=== PATIENT | male | born 1940 | race Caucasian/White ===

== ENCOUNTER 2017-01-07 20:37 | Inpatient (IN) | payer MEDICARE ==
[~2017-01-07] VITALS: Ht 180.3 cm; Wt 113.4 kg
[2017-01-08 00:48] VITALS: Ht 180.3 cm; Wt 113.4 kg
[2017-01-08] MEDS ORDERED: PRINIVIL20 MG PO (13:27)
[2017-01-08] MEDS ORDERED: CARDURA2 MG PO (13:28)
[2017-01-08] MEDS ORDERED: KLOR-CON M2020 MEQ PO (13:29)
[2017-01-08] MEDS ORDERED: CALAN120 MG (13:33)
[2017-01-09] MEDS ORDERED: BAYER CHEWABLE81 MG PO (08:53)
[2017-01-09 12:00] VITALS: BP 148/95
[2017-01-09] MEDS ORDERED: XARELTO15 MG PO (12:58)
[2017-01-09] MEDS ORDERED: AUGMENTIN 875-11 TAB PO (12:58)
[2017-01-09] MEDS ORDERED: BETAPACE 80 MG80 MG PO (16:42)
== END 2017-01-09 17:08 | disposition home or self-care (01) | DRG 68 ==
LOC: D.ER 20:37 → OBSVTIME 22:37 → D.M2 22:37
PROVIDERS: ADMIT Family Medicine
DX: I66.02 Occlusion and stenosis of left middle cerebral artery (principal); C44.319 Basal cell carcinoma of skin of other parts of face; I10 Essential (primary) hypertension; I48.91 Unspecified atrial fibrillation; Z79.01 Long term (current) use of anticoagulants; H40.9 Unspecified glaucoma; R40.2363 Coma scale, best motor response, obeys commands, at hospital admission; R40.2143 Coma scale, eyes open, spontaneous, at hospital admission; R40.2253 Coma scale, best verbal response, oriented, at hospital admission

== ENCOUNTER 2017-02-12 09:57 | Outpatient (CLI) | payer MEDICARE ==
--- NOTE | ~2017-02-12 | HEMODYNAMI ---
PATIENT:PHOENIX GUAJARDO MEDICAL RECORD: [id number] : 44 LOCATION:D.CAT ADMISSION DATE: 02/12/17 Generatedon:02/12/201714:54 Patient name: PHOENIX GUAJARDO Patient #: [id number] SSN: DO B: 1940 Date of study: 02/12/2017 Page: Of Hemodynamic Procedure Report Patient Data Patient Demographics Procedure consent was obtained First Name: PHOENIX Gender: Male Last Name: CASANDRA : 1940 Middle Initial: A Age: 76 year(s) Patient #: [id number] Race: Unknown Additional ID: [id number] Contact details Address: [place] [address] State: [place] City: [facility] Zip code: [address] Admission Admission Data Admission Date: 02/12/2017 Admission Time: 9:57 Procedure Procedure Types Cath Procedure Diagnostic Procedure Cardioversion Procedure Description Procedure Date Procedure Date: 02/12/2017 Procedure Start Time: 14:36 Procedure End Time: 14:53 Procedure Staff Name Function Cayetano Hooks MD Performing Physician Lee Martinez RT Scrub Nicci Hudson RN Nurse Maribel Rainey RT Monitor Alo Zepeda RT Monitor Procedure Data Cath Procedure Fluoroscopy Diagnostic fluoroscopy Total fluoroscopy Time: 0 time: 0 min min Diagnostic fluoroscopy Total fluoroscopy dose: 0 dose: 0 mGy mGy Contrast Material Contrast Material Type Amount (ml) Isovue 300 0 Estimated blood loss: 0 ml Hemodynamics Rest Heart Rate: 87 (bpm) Snapshots Pre Cath Intra NCS Post Cath Vital Signs Time Heart Resp SPO2 etCO2 NIBP (mmHg) Rhythm Pain Sedation Rate (ipm) (%) (mmHg) Status Level (bpm) 14:33:48 79 11 97 189/140(177) NSR 0 (11) 10(A) , No pain 14:38:47 89 17 98 32.2 Measuring NSR 0 (11) 10(A) , No pain 14:38:51 89 17 98 23.9 201/144(180) NSR 0 (11) 10(A) , No pain 14:43:48 69 30 78 22.4 162/93(132) NSR 0 (11) 10(A) , No pain 14:48:43 70 15 89 18.7 154/102(136) NSR 0 (11) 10(A) , No pain 14:53:54 29.2 No Cuff NSR 0 (11) 10(A) , No pain Procedure Log Time Note 14:20:16 Nicci Hudson RN sent for patient. Start room use. 14:27:24 Time tracking: Regular hours 14:27:29 Plan of Care:Hemodynamics will remain stable., Cardiac rhythm will remain stable., Comfort level will be maintained., Respiratory function will remain adequate., Patient/ family verbilizes understanding of procedure., Procedure tolerated without complication., Recovers from procedure without complications.. 14:27:49 Patient arrived from Pre/Post Procedure Room to CCL 1. Patient remains on bed/stretcher for procedure. 14:27:50 Warm blankets applied, and julian hugger turned on for patient comfort. 14:27:51 Correct patient and procedure confirmed by team. 14:27:52 Signed procedure consent form obtained from patient. 14:27:53 ECG and BP/O2 sat monitors applied to patient. 14:32:40 Vital chart was started 14:32:59 Baseline sample Acquired. 14:33:08 Rhythm: atrial fibrillation 14:33:10 Full Disclosure recording started 14:33:22 H&P Date Dictated: 02/06/2017 Within 30 days and on chart., H&P Addendum completed by physician on day of procedure. (MUST COMPLETE FOR ALL OUTPATIENTS). 14:33:24 Pre-procedure instructions explained to patient. 14:33:24 Pre-op teaching completed and patient verbalized understanding. 14:33:27 Family in waiting room. 14:33:29 Patient NPO since Midnight. 14:33:39 Is the patient allergic to Iodine/contrast media? No. 14:33:46 Is patient on blood thinner?Yes 14:34:12 ACC The patient was administered the following blood thiners within the last 24 hours: Xarelto 14:34:18 Patient diabetic? No. 14:34:22 Snore? Yes 14:34:24 Previous problem with sedation/anesthesia? No ? 14:34:27 Sleep apnea? No 14:34:29 Deviated septum? No 14:34:30 Opens mouth fully? Yes 14:34:31 Sticks out tongue? Yes 14:34:38 Dentures? Yes in tight 14:34:43 Airway obstruction? No ? 14:35:00 IV patent on arrival in left forearm with 0.9% NaCl at KVO. 14:35:24 Lab results completed and on chart. 14:35:29 Alarms reviewed by Stefan Brown 14:35:44 Physician arrived 14:35:49 --------ALL STOP TIME OUT------ 14:35:50 Final Timeout: patient, procedure, and site verified with staff and physician. All members of the team are in agreement. 14:36:18 Physical assessment completed. ASA score P 3 - A patient with severe systemic disease as per Cayetano Hooks MD. 14:36:26 Sedation plan: TIVA Propofol 14:36:38 DR. POTTS present and monitoring patient for TIVA. 14:36:42 Quick combo pads placed on patients chest and back. 14:36:51 Procedure started. 14:38:23 DR. POTTS ADMINISTERING PROPOFOL 14:39:34 Shock delivered. 14:40:15 SHOCK DELIVERED AT 250JOULES 14:40:29 Patient cardioverted to sinus rhythm . 14:41:19 Procedure ended.(Physican Out) 14:42:41 Fluoroscopy time 00.00 minutes. 14:42:42 Fluoroscopy dose: 0 mGy 14:42:42 Flurop Dose total: 0 14:42:49 Contrast amount:Isovue 300 0ml. 14:42:58 Post procedure rhythm: sinus rhythm 14:43:00 Estimated blood loss: 0 ml 14:43:02 Post procedure instruction explained to patient.Patient verbalizes understanding. 14:43:03 Patient needs reinforcement of post procedure teaching. 14:43:26 Quick Combo opened to sterile field. 14:46:57 Procedure and supply charges have been captured, reviewed, submitted and are correct. 14:53:29 Vital chart was stopped 14:53:30 See physician's report for complete and final results. 14:53:32 Report given to Pre/Post Procedure Room. 14:53:36 Patient transfered to Pre/Post Procedure Room with Stretcher. 14:53:44 Procedure ended. 14:53:44 Full Disclosure recording stopped 14:54:02 End room use (Document Last) Device Usage Item Manufacture Quantity Catalog Hospital Part Current Minimal Lot# / Name Number Charge Number Kaushik urban# Code [place] [id number] Combo Signature Audit Hudson Stage Time Signature Unsigned Intra-Procedure 02/12/2017 Maribel Rainey 2:54:23 PM RT(R) Signatures Monitor : Maribel Rainey Signature : RT Date : Time : Monitor : Alo Zepeda RT Signature : Date : Time : [address] [address]
[~2017-02-12 09:57] MED LIST: AUGMENTIN 875-11 TAB PO; BAYER CHEWABLE81 MG PO; BETAPACE 80 MG80 MG PO; CALAN120 MG; CARDURA2 MG PO; KLOR-CON M2020 MEQ PO; PRINIVIL20 MG PO; XARELTO15 MG PO
[2017-02-12 10:38] VITALS: BP 169/109; BMI 30.6
[2017-02-12 10:53] LABS: BASOPHILS 0.2 % (0-2); EOSINOPHILS 1.6 % (0-7); HEMATOCRIT 45.7 % (42.0-54.0); HEMOGLOBIN 14.8 g/dL (13.5-17.5); IMMATURE GRANULOCYTES 0.2 % (0-5); LYMPHOCYTES 9.2 % (15-50); MCH 30.6 pg (26.0-34.0); MCHC 32.4 g/dL (31.0-37.0); MCV 94.4 fL (80.0-100.0); MEAN PLATELET VOLUME 11.5 fL (7.4-10.4); MONOCYTES 6.7 % (2-11); NEUTROPHILS 82.1 % (40-80); PLATELET COUNT 204 10x3/uL (130-400); RBC 4.84 10x6/uL (4.20-6.10); RDW 13.8 % (11.5-14.5); WBC 9.3 10x3/uL (4.8-10.8)
[2017-02-12 11:06] LABS: INR 1.57 (0.85-1.17); PROTIME 18.7 SECONDS (11.6-15.0)
[2017-02-12 11:46] LABS: CALC OSMOLALITY 288 mosm/kg (275-300); CALCIUM 9.3 mg/dL (8.5-10.1); CARBON DIOXIDE 24.4 mmol/L (21.0-32.0); CHLORIDE - SERUM 106 mmol/L (98-107); CREATININE - SERUM 0.8 mg/dL (0.6-1.3); GLUCOSE 94 mg/dL (74-106); POTASSIUM - SERUM 4.8 mmol/L (3.5-5.1); SODIUM 144 mmol/L (136-145); UREA NITROGEN 17 mg/dL (7-18); eGFR NON AFRICAN AMERICAN > 90 mL/min (90-120)
--- NOTE | 2017-04-01 12:14 | OP ---
PATIENT NAME: PHOENIX GUAJARDO MEDICAL RECORD: [id number] :44 LOCATION:D.CAT ADMISSION DATE: SURGEON: LOLTIA LORENZO MD DATE OF OPERATION: 02/12/2017 DATE OF SERVICE: 02/12/2017. PROCEDURE: DC cardioversion. INDICATION: Atrial fibrillation. DESCRIPTION OF PROCEDURE: The patient received IV conscious sedation per anesthesia, continuous heart rate, O2 saturation, blood pressure monitoring all undertaken, all of which remains stable. He received 1 shock restoring sinus rhythm. OVERALL IMPRESSION: Successful DC cardioversion from atrial fibrillation to sinus rhythm. TRANSINT:[id number] Voice Confirmation ID: [id number] DOCUMENT ID: [id number] LOLITA LORENZO MD at 1214 CC: [id number] DICTATION DATE: 03/20/17 1223 SPINNING MACHINE OPERATOR: 03/20/17 1452 DEP CLI 02/12/[address] [address]
== END 2017-02-12 16:25 | disposition home or self-care (01) ==
LOC: D.CATH 09:57
PROVIDERS: Internal Medicine Interventional Cardiology
DX: I48.91 Unspecified atrial fibrillation (principal); Z01.812 Encounter for preprocedural laboratory examination